=== PATIENT | female | born 1955 | race Caucasian/White ===

== ENCOUNTER 2019-11-10 12:04 | Emergency (ER) | payer OTHER, SELFPAY ==
--- NOTE | ~2019-11-10 | XR_ITS ---
EXAMINATION: XR chest 1V portable EXAM DATE: 11/10/2019 12:52 INDICATION: Shortness of breath. TECHNIQUE: Portable AP frontal chest x-ray was obtained. There is no prior study for comparison. FINDINGS: There is moderate lung hyperinflation bilaterally. The lungs are otherwise clear. There ar e no pleural effusions. Cardiomediastinal silhouette is normal. There is no pneumothorax suspected. The bones and soft tissues are unremarkable. IMPRESSION: 1. No acute cardiopulmonary findings. 2. Hyperinflation. Reviewed, dictated and finalized at location B.
[2019-11-10 12:20] VITALS: BP 175/89; PULSE 64; RESP 16; TEMP 36.6; O2SAT 100
--- NOTE | 2019-11-10 12:20 | ECG_ITS ---
Measurements Intervals [place] Rate: 63 P: 53 AL: 122 QRS: 45 QRSD: 85 T: 81 QT: 374 QTc: 384 Interpretive Statements SINUS RHYTHM VENTRICULAR PREMATURE COMPLEXES BASELINE ARTIFACT- I, II, III, AVR, AVL, AVF BORDERLINE ECG Electronically Signed On 11-13-2019 13:39:25 CDT by Tab Rankin D.O.
[2019-11-10 12:32] VITALS: O2SAT 98
--- NOTE | 2019-11-10 13:01 | ED.URI ---
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 Patient has congestion rhinorrhea body aches subjective fever. Patient with history of tobacco abuse. Patient with minimal exertional dyspnea Related Data Allergies Allergy/AdvReac Type Severity Reaction Status Date / Time No Known Allergies Allergy Mild Verified 11/10/19 12:35 Review of Systems Review of Systems: All systems reviewed & are unremarkable except as noted in HPI and below PMFSH Social History Social History (Updated 11/10/19 @ 13:03 by Michael Araiza PA-C) Smoking status: Current every day smoker Gender identity (if verbalized by the patient): Female Exam Narrative: Exam Narrative: GENERAL: Well-appearing, well-nourished, and in no acute distress. HEAD: Normocephalic, atraumatic. EYES: PERRLA and EOMI. ENT: Nares clear, no rhinorrhea or epistaxis. Mucous membranes moist. NECK: Supple. No adenopathy or masses. CHEST: Clear to auscultation. No respiratory distress. No wheezes rales or rhonchi HEART: Regular rate and rhythm. No murmur heard. Normal peripheral pulses. ABDOMEN: Soft, nontender, nondistended EXTREMITIES: Normal range of motion. No edema. SKIN: Warm, dry, no rash. NEURO: No focal deficits. Alert and oriented x3. PSYCH: Normal mood and affect. Course Course Emergency Course: Patient in the room in no distress aware of case findings treatment plan and diagnosis agreeing to follow-up as directed or to return if symptoms worsens or concerns. Patient is nontoxic-appearing no distress Vital Signs Vital signs: Vital Signs Temperature 97.9 F 11/10/19 12:20 Pulse Rate 64 11/10/19 12:20 Respiratory Rate 16 11/10/19 12:20 Blood Pressure 175/89 H 11/10/19 12:20 Pulse Oximetry 100 11/10/19 12:20 Temperature 97.9 F 11/10/19 12:20 Pulse Rate 64 11/10/19 12:20 Respiratory Rate 16 11/10/19 12:20 Blood Pressure 175/89 H 11/10/19 12:20 Pulse Oximetry 98 11/10/19 12:32 MDM - URI/Sore Throat MDM Narrative Medical decision making narrative: Patient in the room with potential coated illness in the room afebrile nontoxic-appearing no distress no pneumonia no hypoxemia felt appropriate for outpatient reevaluation agreeing to follow-up as directed provided with reasons to return patient will continue to self quarantine will be sent home with an inhaler and MDI instruct Patient also provided with primary care follow-up Lab Data Labs: Influenza A Screen Negative Reference Range: Negative Influenza B Screen Negative Reference Range: Negative Imaging Data Radiologist's impression: ITS Impressions Chest X-Ray 11/10/19 12:53 IMPRESSION: 1. No acute cardiopulmonary findings. 2. Hyperinflation. ECG Data EKG #1: ECG completion date: 11/10/19 ECG completion time: 12:20 EKG Interpretation: PVCs, no ST changes, normal QRS and NL axis Discharge Plan Discharge Clinical Impression: Upper respiratory infection Patient Disposition: Home, Self-Care Condition: Stable Instructions: Antibiotic Form, COVID-19 (Coronavirus Disease 2019) (ED) Additional Instructions: Follow up with your primary care provider within 7 days. Go to ER for shortness of breath, difficulty breathing, chest pain, fever/chills, weakness, nauseau/vomitting, etc. or any other concerns. Follow patient education sheet Take any prescribed medications as directed. Stay well-hydrated If you do not have
[2019-11-10 13:06] LABS: Basophils Absolute Auto 0.1 K/mm3 (0.0-0.1); Basophils Percent Auto 0.4 % (0.2-1.2); Eosinophils Absolute Auto 0.2 K/mm3 (0-0.3); Eosinophils Percent Auto 1.3 % (0-4.4); Hematocrit 51.2 % (37.0-47.0); Hemoglobin 16.1 g/dL (12.0-15.0); Immature Granulocyte Absolute 0.07 K/mm3 (0.00-0.031); Immature Granulocyte Percent A 0.5 % (0-0.5); Lymphocytes Absolute Auto 2.81 K/mm3 (0.9-3.2); Lymphocytes Percent Auto 19.1 % (18.3-44.2); Mean Corpuscular HGB Conc 31.4 g/dl (32-36); Mean Corpuscular Hemoglobin 27.7 pg (26-34); Mean Platelet Volume 10.5 fl (7.4-10.4); Monocytes Absolute Auto 0.8 K/mm3 (0.1-0.6); Monocytes Percent Auto 5.7 % (2.6-8.5); Neutrophils Absolute Auto 10.7 K/mm3 (1.3-6.7); Platelet Count Result 306 k/mm3 (150-375); Red Blood Count 5.82 M/mm3 (4.2-5.4); White Blood Count 14.7 K/mm3 (4.5-10.0)
[2019-11-10 13:19] LABS: Alanine Aminotransferase 16 U/L (4-35); Albumin Level 4.6 g/dL (3.5-5.1); Alkaline Phosphatase 103 U/L (38-126); Aspartate Amino Transferase 27 U/L (14-36); Bilirubin,Total 0.4 mg/dL (0.2-1.3); Blood Urea Nitrogen 11 mg/dL (7-17); Calcium 9.5 mg/dL (8.4-10.2); Carbon Dioxide 30 mmol/L (22-30); Chloride 103 mmol/L (98-107); Estimated CRCL calculation 80 ml/min; Estimated Glomerular Filt Rate > 60; Glucose 93 mg/dL (65-105); Potassium 3.8 mmol/L (3.4-5.0); Sodium 138 mmol/L (137-145)
[2019-11-10 13:25] VITALS: BP 151/89; PULSE 57; RESP 16; O2SAT 96
[2019-11-11 13:45] LABS: SARS-CoV-2 RNA PCR Negative
== END 2019-11-10 13:40 | disposition home or self-care (01) ==
PROVIDERS: Emergency Medicine Emergency Medical Services; Emergency Provider Emergency Medicine
DX: J06.9 Acute upper respiratory infection, unspecified (principal); Z20.828 Contact with and (suspected) exposure to other viral communicable diseases; F17.200 Nicotine dependence, unspecified, uncomplicated
CPT/HCPCS: 36415; 71045; 80053; 85025; 87635; 87804; 93005; 99283; U0002